=== PATIENT | female | born 1945 | race Caucasian/White ===

== ENCOUNTER → 2018-05-24 | Outpatient (CLI) | payer OTHER, BC ==
[~2018-05-24] MED LIST: ALLEGRA180 MG PO; ASPIRIN325 PO; CARDIZEM CD240 MG PO; CITRUCEL CLEAR539 G1 PO; COUMADIN 1MG TAB1 M1 PO; COUMADIN 4 MG TA4 M1 PO; COUMADIN PO; FUROSEMIDE 80 M80 M1 PO; KEFLEX500 MG PO; LIPITOR40 MG PO; MAGNESIUM250 M1 PO; MIRALAX255 GM PO; MOM PO; MULTIVITAMINS PO; NITROGLYCERIN0.4 MG SL; NORVASC 5 MG TAB5 MG PO; POTASSIUM20 PO; SIMVASTATIN80 MG PO; STOOL SOFTENER1 EAC2 PO; SYNTHROID137 MCG PO; VITAMIN D1000 UNI1 PO; VITAMINC500 PO
== END ==
LOC: ULTRA 08:56
DX: N28.1 Cyst of kidney, acquired (principal)

== ENCOUNTER → 2019-12-03 | Outpatient (CLI) | payer OTHER, BC | LOC: LAB 08:27 | PROVIDERS: ATTEND Neuromusculoskeletal Medicine & OMM | DX: Z01.812 Encounter for preprocedural laboratory examination (principal); Z20.828 Contact with and (suspected) exposure to other viral communicable diseases ==